=== PATIENT | female | born 1995 | race African-American/Black ===

== ENCOUNTER 2018-09-02 15:18 | Inpatient (IN) ==
[2018-09-02] MEDS: LACTATED RINGERS 1,000 ML IV SCH (15:57)
[2018-09-02] MEDS ORDERED: ONDANSETRON 4 MG/2 ML VIAL IV PRN (15:59)
[2018-09-02] MEDS ORDERED: BUTORPHANOL 1 MG/ML VIAL IV PRN (15:59)
[2018-09-02] MEDS ORDERED: MEPERIDINE 50 MG/1 ML VIAL IV PRN (15:59)
[2018-09-02] MEDS ORDERED: LACTATED RINGERS 1,000 ML IV ONE (15:59)
[2018-09-02] MEDS ORDERED: OXYTOCIN/LR 20 UNIT/1,000 ML BAG IV SCH (16:00)
[2018-09-02] MEDS ORDERED: AMPICILLIN INJ 2,000 MG in SODIUM CHLORIDE 0.9% 100 ML IV ONE (16:30)
[2018-09-02 16:37] LABS: Basophils % 0.3 % (0.0-0.8); Eosinophils # 0.1 10*3/uL (0.0-0.87); Eosinophils % 0.8 % (0.00-10.9); Hematocrit 32.9 VOL% (35.7-47.0); Hemoglobin 11.1 GM/DL (12.0-16.0); Immature Granulocytes Absolute 0.11 #; Lymphocytes # 1.7 10*3/uL (1.4-4.0); Lymphocytes % 15.6 % (21.3-54.2); Mean Corpuscular HGB Conc 33.7 GM/DL (32-36); Mean Corpuscular Hemoglobin 28 PG (27-34); Mean Corpuscular Volume 81.4 FL (87-102); Mean Platelet Volume 11.1 FL (9.6-12.0); Monocytes # 1.1 10*3/uL (0.11-0.8); Monocytes % 10.1 % (1.7-12.7); Neutrophils % 72.2 % (38.7-73.9); Platelet Count 239 T/CUMM (130-400); Red Blood Count 4.04 MC/CUMM (3.8-5.5); Red Cell Distribution Width 13.6 % (9.3-17.3)
[2018-09-02] MEDS: AMPICILLIN INJ 1,000 MG in SODIUM CHLORIDE 0.9% 100 ML IV SCH (20:38)
[2018-09-02] MEDS ORDERED: diphenhydrAMINE 50 MG/1 ML VIAL IV PRN ×2 (21:51)
[2018-09-02] MEDS ORDERED: ePHEDrine 50 MG/ML AMP IV PRN (21:51)
[2018-09-02] MEDS ORDERED: NALOXONE 0.4 MG/ML VIAL IV PRN (21:51)
[2018-09-02] MEDS ORDERED: PROMETHAZINE 25 MG/1 ML VIAL IM PRN (21:51)
[2018-09-02] MEDS ORDERED: hydrOXYzine HCL 25 MG/1 ML VIAL IM PRN (21:51)
[2018-09-02] MEDS ORDERED: fentaNYL 2 MCG/ROPIV 0.2% EPID 100 ML EPIDURAL PRN (21:51)
[2018-09-02] MEDS ORDERED: FAMOTIDINE 20 MG/2 ML VIAL IV PRN (21:54)
[2018-09-02] MEDS ORDERED: CITRIC ACID/SODIUM CITRATE 30 ML UDCUP PO PRN (21:54)
[2018-09-03] MEDS: AMPICILLIN INJ 1,000 MG in SODIUM CHLORIDE 0.9% 100 ML IV SCH ×2 (00:35→09:05)
[2018-09-03] MEDS ORDERED: WITCH HAZEL PADS 100/JAR TOP PRN (02:44)
[2018-09-03] MEDS ORDERED: ONDANSETRON 4 MG/2 ML VIAL IV PRN (02:44)
[2018-09-03] MEDS ORDERED: RHO(D) IMMUNE GLOBULIN 300 MCG SYRINGE IM ONE (02:44)
[2018-09-03] MEDS ORDERED: BENZOCAINE 20%/MENTHOL 0.5% SPRAY 56 GM CAN TOP PRN (02:44)
[2018-09-03] MEDS ORDERED: HYDROCORTISONE 2.5% RECTAL CREAM 30 GM TUBE TOP PRN (02:44)
[2018-09-03] MEDS ORDERED: LANOLIN 50% CREAM 0.3 OZ TUBE TOP PRN (02:44)
[2018-09-03] MEDS ORDERED: ACETAMINOPHEN 325 MG TABLET PO PRN (02:44)
[2018-09-03] MEDS ORDERED: OXYTOCIN/LR 20 UNIT/1,000 ML BAG IV ONE (02:44)
[2018-09-03] MEDS ORDERED: BISACODYL 10 MG SUPP RECTAL PRN (02:44)
[2018-09-03] MEDS ORDERED: oxyCODONE/ACETAMINOPHEN 5-325 MG TABLET PO PRN (02:44)
[2018-09-03] MEDS ORDERED: MEASLES/MUMPS/RUBELLA VACCINE 0.5 ML VIAL SUBCUT ONE (02:44)
[2018-09-03] MEDS ORDERED: DIPH/TET/ACEL PERT BOOSTER VACCINE 0.5 ML VIAL IM ONE (02:44)
[2018-09-03 05:37] LABS: Apearance,Urine CLEAR (Clear); Bilirubin,Urine Negative (Negative); Blood, Urine Negative (Negative); Glucose,Urine (UA) Negative (Negative); Ketones,Urine 5 mg/dL (Negative); Mucus,Urine Occasional /LPF (Occasional); Nitrite,Urine Negative (Negative); Protein,Urine Negative; RBC,Urine <1 /HPF (0-4); Squamous Epithelial Cell,Urine Occasional /HPF (0-10); Urine Color Yellow (Yellow); Urine Specific Gravity 1.011 (1.001-1.035); Urine Urobilinogen < 2.0 EU/DL (0.2-1.0); WBC,Urine 1 /HPF (0-6)
[2018-09-03 06:42] LABS: Basophils % 0.1 % (0.0-0.8); Eosinophils % 0.1 % (0.00-10.9); Hematocrit 29.9 VOL% (35.7-47.0); Hemoglobin 10.1 GM/DL (12.0-16.0); Immature Granulocytes % 0.8 %; Immature Granulocytes Absolute 0.12 #; Lymphocytes # 1.8 10*3/uL (1.4-4.0); Mean Corpuscular HGB Conc 33.8 GM/DL (32-36); Mean Corpuscular Hemoglobin 27 PG (27-34); Mean Platelet Volume 11.1 FL (9.6-12.0); Monocytes # 1.5 10*3/uL (0.11-0.8); Monocytes % 10.2 % (1.7-12.7); Neutrophils # 11.5 10*3/uL (1.4-7.4); Neutrophils % 76.8 % (38.7-73.9); Platelet Count 197 T/CUMM (130-400); Red Blood Count 3.69 MC/CUMM (3.8-5.5); Red Cell Distribution Width 13.7 % (9.3-17.3)
[2018-09-03 07:14] LABS: Alanine Aminotransferase 17 U/L (13-56); Albumin 2.1 G/DL (3.4-5.0); Alkaline Phosphatase 116 U/L (45-117); Aspartate Amino Transferase 12 U/L (0-37); Bilirubin,Total < 0.39 MG/DL (0.2-1.0); Blood Urea Nitrogen 4 MG/DL (7-18); Calcium 8.2 MG/DL (8.5-10.1); Glucose 76 MG/DL (74-106); Osmolality,Calculated 274.4 MOS/KG (273-304); Potassium 3.7 MMOL/L (3.5-5.1); Sodium 140 MMOL/L (136-145); Total Protein 5.7 G/DL (6.4-8.3)
[2018-09-03] MEDS: LACTATED RINGERS 1,000 ML IV SCH ×2 (08:06→11:03)
[2018-09-03] MEDS: IBUPROFEN 800 MG TABLET PO PRN ×2 (09:03→18:30)
[2018-09-03] MEDS: oxyCODONE/ACETAMINOPHEN 5-325 MG TABLET PO PRN ×2 (09:04→18:30)
[2018-09-03] MEDS: DOCUSATE SODIUM 100 MG CAPSULE PO SCH ×2 (11:02→23:03)
[2018-09-04] MEDS: DOCUSATE SODIUM 100 MG CAPSULE PO SCH (08:53)
[2018-09-04] MEDS ORDERED: INFLUENZA VIRUS VACCINE 0.5 ML SYRINGE IM ONE (09:00)
[2018-09-04 12:13] VITALS: BP 117/71
== END 2018-09-04 15:30 | disposition home or self-care (01) | DRG 560 ==
LOC: N.LDOUT 15:18 → N.LD 15:21 → N.OB 09-03 12:30
PROVIDERS: ADMIT Obstetrics & Gynecology; ATTEND Obstetrics & Gynecology